=== PATIENT | male | born 1960 | race Caucasian/White ===

== ENCOUNTER 2019-04-10 16:58 | Outpatient (REF) | payer BC, SELFPAY ==
[2019-04-10 20:49] LABS: Anion Gap 9.7 mmol/L (3-11); BUN 26 mg/dL (7-18); CO2 28.3 mmol/L (21.0-32.0); Calcium 9.5 mg/dL (8.5-10.1); Chloride 100 mmol/L (98-107); Glucose 105 mg/dL (70-100); Potassium 3.8 mmol/L (3.5-5.1); Sodium 138 mmol/L (136-145)
== END 2019-04-10 17:18 ==
LOC: NCHCN 16:58
PROVIDERS: PCP Internal Medicine; Visit Provider Internal Medicine
DX: I10 Essential (primary) hypertension (principal); Z00.00 Encounter for general adult medical examination without abnormal findings; F17.220 Nicotine dependence, chewing tobacco, uncomplicated; E66.9 Obesity, unspecified
CPT/HCPCS: 80048

== ENCOUNTER 2020-07-01 16:43 | Outpatient (REF) | payer OTHER, SELFPAY ==
[2020-07-01 20:46] LABS: Anion Gap 9.4 mmol/L (3-11); BUN 18 mg/dL (7-18); CO2 29.6 mmol/L (21.0-32.0); CREATININE 1.03 mg/dL (0.70-1.30); Calcium 9.6 mg/dL (8.5-10.1); Chloride 100 mmol/L (98-107); Glucose 107 mg/dL (74-106); Potassium 3.7 mmol/L (3.5-5.1); Sodium 139 mmol/L (136-145)
== END 2020-07-01 17:03 ==
LOC: NCHCN 16:43
PROVIDERS: PCP Internal Medicine; Visit Provider Internal Medicine
DX: I10 Essential (primary) hypertension (principal)
CPT/HCPCS: 80048

== ENCOUNTER 2020-09-10 11:25 | Day surgery (SDC) | payer OTHER, SELFPAY ==
[2020-09-10 11:38] VITALS: BP 140/88; PULSE 79; RESP 16; TEMP 36.5; O2SAT 96
[2020-09-10] MEDS: Lactated Ringers 1,000 ML 80 ML IV (11:59)
--- NOTE | 2020-09-10 13:06 | BOWEL_PTH ---
PATIENT: Tej Adler LOC: [facility] U#:[id number] AGE/SX: 60/M ROOM: RE09/10/[address]: Quin Lopez MD : [id number] BED: DIS: 09/10/2020 SPEC #: [id number] RECD: 09/10/20 13:51 STATUS: JOHNATHON REQ #: [id number] [place]: 09/10/20 13:[address]: Quin Lopez DEPT: Surgical Specimen RECD BY: Julia Thomas ENTERED: 09/10/20 13:53 SP TYPE: Bowel OTHR DR: Anthony Paz Tissues: 1 - BIOPSY BOWEL 2 - BIOPSY BOWEL 3 - BIOPSY BOWEL 4 - BIOPSY BOWEL Procedures: GROSS AND MICRO LEVEL 4 Comments: [id number] ([id number] [facility] [place]#)
--- NOTE | 2020-09-10 13:25 | W.PM.DSUDISC ---
Discharge Plan Disposition Patient Disposition: HOME Condition: Good Discharge Details Reason For Visit: Colonoscopy Attending Provider: Quin Lopez Primary Care Provider: Anthony Paz Home Meds and New Rx's Prescriptions: Continued hydrochlorothiazide 25 mg tablet 25 mg PO DAILY RF: 0 Fiber Laxative (methylcellulo) 500 MG tablet 500 mg PO DAILY AM RF: 0 Centrum Silver 1 EACH tablet 1 ea PO DAILY RF: 0 Discharge Instructions Additional Instructions: Findings: Your colonoscopy did not show any visible inflammation. Random biopsies were performed throughout the colon. No polyps were found. Mild diverticulosis was present. Follow up: My office will contact you with biopsy results. Recommendations on the timing of your next colonoscopy will be based on the biopsies. Please call if you develop: fevers >101.5 Nausea or Vomiting Abdominal pain that is not transient DAY SURGERY UNIT POST COLONOSCOPY INSTRUCTIONS 1. Because there will be medication in your system for the next 24 hours, you may feel a little sleepy. Your coordination will be affected. Therefore: a. Do not drive or operate dangerous equipment for 24 hours. b. Do not drink alcohol beverages for 24 hours (not even beer). c. Plan to go home and rest for the day. 2. Generally there are no restrictions on your activity after a day or so has gone by, but you may feel a bit fatigued for a few days. 3 After you arrive home you may have a light meal and return to a normal diet as you can tolerate it without feeling sick to your stomach. 4. After surgery, you may feel pain or discomfort. This should be only transient, but if it persists please contact your doctor. 5. If there are any questions regarding the findings of your procedure, please feel free to contact your doctor. 6. If you are unable to contact your doctor with a problem, contact the hospital at [phone]. 7. Continue all your regular medications unless directed otherwise. I understand the above instructions and have no questions. Signature of Patient or Responsible Adult Escort Date/Time Name of Responsible Adult Escort Signature of Nurse Date/Time Activity:: Activity as Tolerated Diet:: As Tolerated Discharge Orders Discharge Orders: Discharge Order (Routine); Ordered 09/10/20 Ordered By: Quin Lopez DS: Diagnosis Discharge Diagnosis (1) Diverticulosis: Status: Acute
[2020-09-10 13:59] VITALS: BP 107/80; PULSE 66; RESP 16; TEMP 36.6; O2SAT 97
--- NOTE | 2020-09-12 19:27 | W.COLOREPORT ---
Colonoscopy Report Date of procedure: 09/10/20 Pre-op diagnosis general: Possible history of ulcerative colitis Post-op diagnosis procedure note: other (Diverticulosis) Procedure: Colonoscopy with random biopsies Surgeon: Quin Lopez Anesthesia proc note operative: MAC Indications: This 60 year old man presents for colonoscopy. His last procedure in 2012 showed inflammation from 40-45cm, biopsies showed IBD with no dysplasia. Rectal biopsies showed quiescent proctitis. He has no symptoms and has not taken Asacol for many years. Procedure Description: The patient was placed in the left [place] position. Propofol was titrated to sedation. Digital rectal examination revealed no abnormalities. The scope was advanced to the cecum without difficulty. The ileocecal valve and appendiceal orifice were clearly identified. The prep was good. The distal ileum was intubated and appeared normal. Random biopsies were performed in the ileum, ascending colon, sigmoid colon at 40cm and in the rectum. The scope was slowly withdrawn over the course of greater than 6 minutes with no abnormalities seen in the ascending, transverse, descending, sigmoid colon or rectum including on retroflexed view. He did have moderate sigmoid diverticulosis. The patient tolerated the procedure well and was stable to recovery. There is no evidence of active disease but will await biopsy results to determine follow up colonoscopy interval.
== END 2020-09-10 14:15 | disposition home or self-care (01) ==
PROVIDERS: PCP Internal Medicine; Visit Provider Surgery
PROC: 0DJD8ZZ Inspection of Lower Intestinal Tract, Via Natural or Artificial Opening Endoscopic (ICD-10-PCS; CPT 45378; principal; 2020-09-10 13:30)
DX: Z12.11 Encounter for screening for malignant neoplasm of colon (principal); I10 Essential (primary) hypertension; K51.90 Ulcerative colitis, unspecified, without complications; K57.30 Diverticulosis of large intestine without perforation or abscess without bleeding
CPT/HCPCS: 45380; 88305; J2001

== ENCOUNTER 2021-07-05 16:21 | Outpatient (REF) | payer OTHER, SELFPAY ==
[2021-07-05 21:21] LABS: Anion Gap 9.8 mmol/L (3-11); BUN 20 mg/dL (7-18); CO2 28.2 mmol/L (21.0-32.0); CREATININE 1.1 mg/dL (0.70-1.30); Calcium 9.5 mg/dL (8.5-10.1); Chloride 102 mmol/L (98-107); Glucose 91 mg/dL (74-106); Potassium 3.8 mmol/L (3.5-5.1); Sodium 140 mmol/L (136-145)
== END 2021-07-05 16:22 | disposition home or self-care (01) ==
LOC: NCHCN 16:21
PROVIDERS: PCP Internal Medicine; Visit Provider Internal Medicine
DX: I10 Essential (primary) hypertension (principal)
CPT/HCPCS: 80048

== ENCOUNTER 2023-01-29 08:58 | Outpatient (REF) | payer OTHER, SELFPAY ==
[2023-01-29 16:50] LABS: Anion Gap 6.1 mmol/L (3-11); BUN 30 mg/dL (7-18); CO2 30.9 mmol/L (21.0-32.0); CREATININE 1.1 mg/dL (0.70-1.30); Calcium 9.6 mg/dL (8.5-10.1); Calculated LDL 144 mg/dL (<100); Chloride 104 mmol/L (98-107); Cholesterol 211 mg/dL (<200); Estimated GFR 76.37 (mL/min/1.73m2); Glucose 100 mg/dL (74-106); HDL Cholesterol 53 mg/dL (40-60); Potassium 3.9 mmol/L (3.5-5.1); Sodium 141 mmol/L (136-145); Triglyceride 73 mg/dL (<150)
== END 2023-01-29 08:59 | disposition home or self-care (01) ==
LOC: NCHCN 08:58
PROVIDERS: PCP Internal Medicine; Visit Provider Family Medicine
DX: I10 Essential (primary) hypertension (principal); E78.5 Hyperlipidemia, unspecified
CPT/HCPCS: 80048; 80061

== ENCOUNTER 2023-10-17 16:41 | Outpatient (REF) | payer OTHER, SELFPAY ==
[2023-10-17 21:43] LABS: HCT 46.1 % (40.0-50.0); HGB 14.6 g/dL (13.5-17.5); MCH 26.4 pg (27.0-33.0); MCHC 31.7 % (32.0-36.0); MCV 83 fL (80-95); MPV 12.2 fL (8.0-11.0); Platelet Count 127 10^3/uL (130-400); RBC 5.54 10^6/uL (4.36-5.78); RDW 13.2 % (11.8-14.1); RDW-SD 39.7 fL; WBC 7.81 10^3/uL (4.4-10.8)
[2023-10-17 21:57] LABS: ALT 31 U/L (16-63); AST 25 U/L (15-37); Albumin 3.9 g/dL (3.4-5.0); Alkaline Phosphatase 55 U/L (46-116); Anion Gap 9.9 mmol/L (3-11); BUN 27 mg/dL (7-18); Bilirubin, Total 0.6 mg/dL (0.2-1.0); CO2 28.1 mmol/L (21.0-32.0); CREATININE 1.2 mg/dL (0.70-1.30); Calcium 9.8 mg/dL (8.5-10.1); Chloride 102 mmol/L (98-107); Glucose 108 mg/dL (74-106); Potassium 3.5 mmol/L (3.5-5.1); Sodium 140 mmol/L (136-145); Total Protein 7.7 g/dL (6.4-8.2)
== END 2023-10-17 16:42 | disposition home or self-care (01) ==
LOC: NCHCN 16:41
PROVIDERS: PCP Internal Medicine; Visit Provider Family Medicine
DX: Z00.00 Encounter for general adult medical examination without abnormal findings (principal); I10 Essential (primary) hypertension; E78.5 Hyperlipidemia, unspecified
CPT/HCPCS: 80053; 85027

== ENCOUNTER 2024-02-14 18:45 | Outpatient (REF) | payer OTHER, SELFPAY ==
[2024-02-14 20:51] LABS: HGB 14.2 g/dL (13.5-17.5); MCH 27.3 pg (27.0-33.0); MCHC 32.3 % (32.0-36.0); MCV 85 fL (80-95); RDW 13.4 % (11.8-14.1); RDW-SD 41.4 fL; WBC 7.98 10^3/uL (4.4-10.8)
[2024-02-14 21:03] LABS: ALT 33 U/L (16-63); AST 29 U/L (15-37); Alkaline Phosphatase 60 U/L (46-116); Anion Gap 8.3 mmol/L (3-11); BUN 27 mg/dL (7-18); Bilirubin, Total 0.7 mg/dL (0.2-1.0); CO2 30.7 mmol/L (21.0-32.0); CREATININE 1.1 mg/dL (0.70-1.30); Calcium 9.2 mg/dL (8.5-10.1); Chloride 103 mmol/L (98-107); Glucose 86 mg/dL (74-106); Potassium 4.4 mmol/L (3.5-5.1); Sodium 142 mmol/L (136-145); Total Protein 7.2 g/dL (6.4-8.2)
== END 2024-02-14 18:46 | disposition home or self-care (01) ==
LOC: NCHCN 18:45
PROVIDERS: PCP Internal Medicine; Visit Provider Family Medicine
DX: Z00.00 Encounter for general adult medical examination without abnormal findings (principal)
CPT/HCPCS: 80053; 85027

== ENCOUNTER 2024-04-14 17:22 | Emergency (ER) | payer OTHER, SELFPAY ==
[2024-04-14 17:26] VITALS: BP 184/87; PULSE 69; RESP 20; TEMP 37.2; O2SAT 98
--- NOTE | 2024-04-14 17:45 | DI.CT_ITS ---
Exam(s) CT CHEST/ABD/PEL W EXAM: CT CHEST/ABD/PEL W CLINICAL HISTORY: LUQ pain TECHNIQUE: Imaging Protocol: Axial computed tomography images with coronal and sagittal reformatted images were created and reviewed CONTRAST MATERIAL: Intravenous: Omnipaque 350 contrast volume:100 mL Oral: No COMPARISON: No exams were available for comparison FINDINGS: CHEST: Tracheobronchial tree: Patent where visualized. Pulmonary parenchyma: There are infiltrates seen in the lower lobes bilaterally and the dependent por tion of the left lingula. No architectural distortion. Visualized thyroid gland: There is a 9 mm hypodensity in the left lobe of the thyroid gland. No foll ow-up is recommended. Mediastinum and Melissa: No dominant adenopathy or fluid collection. The esophagus is unremarkable. Pleura: No effusion or pneumothorax. Heart: The heart is not dilated. Coronary artery calcification is present. No pericardial effusion. Pulmonary arteries: Due to the bolus timing, pulmonary artery opacification is suboptimal for evaluat ion of pulmonary emboli. No large central pulmonary embolus is present. Aorta: Thoracic aorta non-dilated. Atherosclerotic calcification is present. Lymph nodes: Within normal limits. Soft tissues: Unremarkable. Bones:There is L4-5 spondylolysis and grade 1 spondylolisthesis of L4 on L5. ABDOMEN: Liver: Normal density. No measurable mass. Portal, Superior Mesenteric, and Splenic Veins: Unremarkable. Gallbladder and Biliary Tract: No radiodense calculus or dilation. Pancreas: Normal density, no abnormal calcifications or inflammatory process. Spleen: Normal. Adrenals: No masses seen. Kidneys: Normal size, contour and axis. No radiodense stones or obstructive uropathy. There is a simp le cyst in the right kidney. No follow-up is recommended. Abdominal Aorta: Abdominal portion non-dilated. Mild atherosclerotic calcification is present. Bowel: There is diverticulosis of the colon. Mild pericolonic inflammatory changes are seen in the p roximal sigmoid colon suspicious for acute diverticulitis. The remainder of the bowel is unremarkabl e. There is no evidence of bowel obstruction. No evidence of appendicitis. Peritoneal Cavity: No ascites, collection or mesenteric inflammatory response. No free air. Lymph Nodes: Within normal limits. Bones: Within normal limits for the patient's age. Soft Tissues: There is a fat containing umbilical hernia. Small fat containing bilateral inguinal he rnias are present. PELVIS: Bladder: Symmetric distention, no gross wall thickening. Reproductive Organs: Unremarkable as visualized. Lymph Nodes: Within normal limits. Bones: Within normal limits. IMPRESSION: 1. Bilateral basilar infiltrates in the dependent portions of the lungs which may represent atelectas is or possible scarring. 2. Colonic diverticulosis with mild stranding around the proximal sigmoid colon suspicious for acute diverticulitis. No abscess or free air. Given the history, trauma should also be considered. 3. No acute fracture. No displaced rib fractures. RADIATION DOSE DELIVERED: 1,413.78mGy.cm Total DLP DATA REPOSITORY: All CT scans at this facility are submitted to the National Radiology Data Registry (NRDR) Dose Index Registry (DIR) with the [employer] (A[employer]). RADIATION OPTIMIZATION: All CT scans at this facility use at least one of these dose optimization te chniques: automated exposure control; mA and/or kV adjustment per patient size (includes targeted exa ms where dose is matched to clinical indication); or iterative reconstruction.
[2024-04-14 18:19] LABS: Abs Immature Grans 0.04 10^3/uL (0.0-0.06); Absolute Basophil Count 0.02 10^3/uL (0.0-0.2); Absolute Eosinophil Count 0.06 10^3/uL (0.0-0.7); Absolute Lymphocyte Count 1.38 10^3/uL (1.2-3.4); Absolute Monocyte Count 0.77 10^3/uL (0.1-0.8); Absolute Neutrophil Count 7.18 10^3/uL (1.2-6.7); Basophils % 0.2 %; Eosinophils % 0.6 %; HCT 47.3 % (40.0-50.0); Immature Grans % 0.4 %; Lymphocytes % 14.6 %; MCH 26.5 pg (27.0-33.0); MCHC 31.7 % (32.0-36.0); MCV 84 fL (80-95); MPV 10.6 fL (8.0-11.0); Monocytes % 8.1 %; Neutrophils % 76.1 %; Platelet Count 233 10^3/uL (130-400); RBC 5.66 10^6/uL (4.36-5.78); RDW 13.2 % (11.8-14.1); RDW-SD 40.8 fL; WBC 9.45 10^3/uL (4.4-10.8)
[2024-04-14 18:35] LABS: ALT 30 U/L (16-63); AST 17 U/L (15-37); Albumin 4.3 g/dL (3.4-5.0); Alkaline Phosphatase 60 U/L (46-116); Anion Gap 8.3 mmol/L (3-11); BUN 19 mg/dL (7-18); Bilirubin, Total 0.6 mg/dL (0.2-1.0); CO2 30.7 mmol/L (21.0-32.0); CREATININE 1.2 mg/dL (0.70-1.30); Calcium 9.3 mg/dL (8.5-10.1); Chloride 101 mmol/L (98-107); Estimated GFR 68.38 (mL/min/1.73m2); Glucose 110 mg/dL (74-106); Potassium 3.4 mmol/L (3.5-5.1); Sodium 140 mmol/L (136-145); Total Protein 8.3 g/dL (6.4-8.2)
[2024-04-14] MEDS: fentaNYL 100 MCG/2 ML VIAL 75 MCG IVP (18:36)
[2024-04-14] MEDS: Normal Saline - Diluent 50 ML VIAL IJ (18:45)
[2024-04-14] MEDS: Omnipaque 350 MG/ML 100 ML BTL IJ (18:46)
[2024-04-14] MEDS: Normal Saline Flush 10 ML SYR IVP (18:47)
--- NOTE | 2024-04-14 19:26 | DI.VRAD_ITS ---
PROCEDURE INFORMATION: Exam: CT Chest With Contrast; Diagnostic Exam date and time: 04/14/2024 6:50 PM Age: 64 years old Clinical indication: Injury; Blunt trauma; Injury date: 04/14/24; Fall off ladder, landing on ladder; Left abdominal and left chest pain TECHNIQUE: Imaging protocol: Diagnostic computed tomography of the chest with contrast. Radiation optimization: All CT scans at this facility use at least one of these dose optimization techniques: automated exposure control; mA and/or kV adjustment per patient size (includes targeted exams where dose is matched to clinical indication); or iterative reconstruction. Contrast material: OMNIPAQUE 350; Contrast volume: 100 ml; Contrast route: INTRAVENOUS (IV); COMPARISON: No relevant prior studies available. FINDINGS: Lungs: No alveolar or ground glass infiltrate. Left basilar linear parenchymal scarring or subsegmental collapse / atelectasis. No lung contusion. Pleural spaces: No pleural fluid collection. No pneumothorax. Heart: No pericardial effusion. Lymph nodes: No enlarged lymph nodes. Vasculature: Normal caliber thoracic aorta without dissection or aneurysm. Appendix: Normal appendix. Bones/joints: No acute fracture. Spinal degenerative changes. Soft tissues: Mild gynecomastia. Fat-containing inguinal and umbilical hernias. IMPRESSION: 1. No acute fracture. 2. No pleural fluid collection, pneumothorax, or lung contusion. PROCEDURE INFORMATION: Exam: CT Abdomen And Pelvis With Contrast Exam date and time: 04/14/2024 6:50 PM Age: 64 years old Clinical indication: Injury; Blunt trauma; Injury date: 04/14/24; Fall off ladder, landing on ladder; Left abdominal and left chest pain TECHNIQUE: Imaging protocol: Computed tomography of the abdomen and pelvis with contrast. Radiation optimization: All CT scans at this facility use at least one of these dose optimization techniques: automated exposure control; mA and/or kV adjustment per patient size (includes targeted exams where dose is matched to clinical indication); or iterative reconstruction. Contrast material: OMNIPAQUE 350; Contrast volume: 100 ml; Contrast route: INTRAVENOUS (IV); COMPARISON: No relevant prior studies available. FINDINGS: Liver: Normal. No mass. Gallbladder and bile ducts: Normal. No calcified stones. No ductal dilation. Pancreas: Normal. No ductal dilation. Spleen: Normal. No splenomegaly. Adrenal glands: Normal. No mass. Kidneys and ureters: No hydronephrosis. No calcified renal or ureteral stones. No perinephric stranding or perinephric fluid. 11 mm right renal cortical benign simple cyst for which no follow-up imaging is recommended. Stomach and bowel: Scattered colon diverticula with mild stranding external to the proximal sigmoid colon which may be secondary to recent trauma or mild acute diverticulitis. No perforation or abscess. Appendix: No evidence of appendicitis. Intraperitoneal space: No free air. No significant fluid collection. Vasculature: The abdominal aorta is normal in caliber without aneurysm or dissection. Lymph nodes: No enlarged lymph nodes. Urinary bladder: Unremarkable as visualized. Reproductive: Unremarkable as visualized. Bones/joints: No acute fracture. Spinal degenerative changes. L4-L5 spondylolisthesis with associated spondylolysis. Soft tissues: Unremarkable. IMPRESSION: 1. No acute fracture. 2. Scattered colon diverticula with mild stranding external to the proximal sigmoid colon which may be secondary to recent trauma or mild acute diverticulitis. No perforation or abscess. 3. Otherwise, no acute intra-abdominal or pelvic process. Dictated and Authenticated by: Chad Azevedo MD. Ordering:ALECIA Willis MD
[2024-04-14] MEDS: Cyclobenzaprine 10 MG TAB, 3 TABS/BTL PO (20:23)
[2024-04-14 20:37] VITALS: BP 140/78; PULSE 77; RESP 18; O2SAT 97
--- NOTE | 2024-04-14 21:47 | ED.GENADUL_ITS ---
Discharge Plan Disposition Patient Disposition: Home Condition: Stable Discharge Details Clinical Impression: Chest wall contusion Primary Care Provider: Anthony Paz ED Provider: Alba Urban Home Meds and New Rx's Prescriptions: New cyclobenzaprine 10 mg tablet 10 mg PO TID PRNQty: 10 0RF Continued hydrochlorothiazide 25 mg tablet 25 mg PO DAILY Fiber Laxative(methylcellulos) 500 MG tablet 500 mg PO DAILY AM Centrum Silver 1 EACH tablet 1 ea PO DAILY Discharge Instructions Instructions: Contusion in Adults (ED) Additional Instructions: Take the oxycodone sparingly, this medication is addictive, take the Flexeril as needed for musculoskeletal pain Do not drive for 8 hours after taking his medications Continue to take deep breaths at least 8 full inhalations and ask lesions daily You will likely have discomfort for 2 to 6 weeks Please return should you have worsening pain, shortness of breath, fever or chills, or should any new concerns arise Referrals: Anthony Paz MD [Primary Care Provider] - 2 days Discharge Data Discharge Date/Time-TO BE ENTERED AT DEPARTURE: 04/14/24 20:38 HPI General Date/Time Provider Initiated Documentation: 04/14/24 17:30 . HPI Narrative: This 64-year-old male presents after falling approximately 3 feet off a stepladder. He states he lost his balance fell onto his left side. The stepladder fell and patient fell on top of the stepladder. He reports that he has tenderness to left ribs and left upper quadrant. Denies any head injury or loss of consciousness. Denies any neck pain. States the pain is worsened with breathing and movement. Related Data Home Medications Medication Instructions Recorded Confirmed methylcellulose (laxative) 500 mg 500 mg PO DAILY AM 01/07/13 04/14/24 tablet (Fiber Laxative (methylcellulose)) [id number] acid 0.4 1 ea PO DAILY 01/07/13 04/14/24 mg-lycopene 300 mcg-lutein 250 mcg tablet (Centrum Silver) hydrochlorothiazide 25 mg tablet 25 mg PO DAILY 12/19/19 04/14/24 cyclobenzaprine 10 mg tablet 10 mg PO TID PRN #10 tabs 04/14/24 Previous Rx's Medication Instructions Recorded cyclobenzaprine 10 mg tablet 10 mg PO TID PRN #10 tabs 04/14/24 Allergies Allergy/AdvReac Type Severity Reaction Status Date / Time No Known Allergies Allergy Unverified 04/14/24 17:29 General Stated Complaint: Fall/Non TraumaCriteria CHERRY: 3 Exam Narrative Exam Narrative: Calm and cooperative 64-year-old male with reproducible tenderness in the left upper quadrant, no CVA tenderness, GCS 15, alert and oriented x 4, no visible signs of head injury, no cervical spine tenderness, no paraspinal tenderness, pupils equal round reactive to light and accommodation, lungs clear to auscultation bilaterally, cardiac rate rhythm regular, no visible sign of trauma to chest or abdomen. No visible sign of skin injury, no lower extremity tenderness. Course Vital Signs Vital signs: Vital Signs Temperature 37.2 C 04/14/24 17:26 Pulse 69 04/14/24 17:26 Respiratory Rate 20 04/14/24 17:26 Blood Pressure 184/87 H 04/14/24 17:26 Pulse Oximetry 98 04/14/24 17:26 Temperature 37.2 C 04/14/24 17:26 Pulse 77 04/14/24 20:37 Respiratory Rate 18 04/14/24 20:37 Respiratory Effort Normal 04/14/24 17:29 Blood Pressure 140/78 04/14/24 20:37 Blood Pressure Position Sitting 04/14/24 17:26 Pulse Oximetry 97 04/14/24 20:37 Pain Level 4 04/14/24 20:37 Lab/Test Results Lab/Test Results: Laboratory Tests Range/Units 04/14/24 18:08 WBC (4.4-10.8) 10^3/uL 9.45 RBC (4.36-5.78) 10^6/uL 5.66 Hgb (13.5-17.5) g/dL 15.0 Hct (40.0-50.0) % 47.3 MCV (80-95) fL 84 MCH (27.0-33.0) pg 26.5 L MCHC (32.0-36.0) % 31.7 L RDW (11.8-14.1) % 13.2 Plt Count (130-400) 10^3/uL 233 MPV (8.0-11.0) fL 10.6 Immature Gran % % 0.4 Neutrophils % % 76.1 Lymphocytes % % 14.6 Monocytes % % 8.1 Eosinophils % % 0.6 Basophils % % 0.2 Nucleated RBC % (0.0-0.3) % 0.0 Absolute Neutrophils (1.2-6.7) 10^3/uL 7.18 H Absolute Lymphocytes (1.2-3.4) 10^3/uL 1.38 Absolute Monocytes (0.1-0.8) 10^3/uL 0.77 Absolute Eosinophils (0.0-0.7) 10^3/uL 0.06 Absolute Basophils (0.0-0.2) 10^3/uL 0.02 Sodium (136-145) mmol/L 140 Potassium (3.5-5.1) mmol/L 3.4 L Chloride (98-107) mmol/L 101 Carbon Dioxide (21.0-32.0) mmol/L 30.7 Anion Gap (3-11) mmol/L 8.3 BUN (7-18) mg/dL 19 H Creatinine (0.70-1.30) mg/dL 1.2 Est GFR (CKD-EPI 2020) (mL/min/1.73m2) 68.38 Glucose (74-106) mg/dL 110 H Calcium (8.5-10.1) mg/dL 9.3 Total Bilirubin (0.2-1.0) mg/dL 0.6 AST (15-37) U/L 17 ALT (16-63) U/L 30 Alkaline Phosphatase (46-116) U/L 60 Total Protein (6.4-8.2) g/dL 8.3 H Albumin (3.4-5.0) g/dL 4.3 ABO/Rh O Positive Antibody Screen NEGATIVE Medical Decision Making Patient alert and oriented, ambulatory steady gait, CT is ordered secondary to trauma, per radiology interpretation my review no evidence of acute abnormality, question of some stranding in the sigmoid colon, this was reviewed with Dr. Rockwell who does not feel like additional observation is warranted at this time, after consultation. Patient is nontender in this area of his abdomen. He is feeling improvement after some fentanyl administration will be discharged home with muscle relaxant and oxycodone as needed. He he is encouraged to treat his injury like a rib fracture and spirometry reviewed and encouraged. Diagnostic labs do not show evidence of significant acute abnormality. Patient is discharged home in stable condition with stable vitals ambulatory with steady gait fully alert and oriented Quality:SDOH Health Related Social Needs: No Data to Display PFSH All Active Problems (Updated 04/14/24 @ 20:11 by HANSEL Manley) Chest wall contusion (Acute) Normal colonoscopy (Acute) Diverticulosis (Acute) Medical History (Updated 04/14/24 @ 20:11 by HANSEL Manley) Hyperlipidemia Snoring Sleep apnea Chewing tobacco use Obesity Hypertension Ulcerative colitis Surgical History (Updated 09/10/20 @ 11:33 by Lalit Rainey) Hx of tonsillectomy History of colonoscopy (~2012) Social History Smoking/Tobacco Use Status: Current every day Tobacco Type: smokeless tobacco Smoking risk assessment performed?: Yes Alcohol Intake: current Alcohol Intake frequency: a few times a month Drug use: Never Substance use type: does not use Do you feel safe at home: Yes Do you feel safe in your relationship?: Yes
== END 2024-04-14 20:38 | disposition home or self-care (01) ==
PROVIDERS: Emergency Provider Physician Assistant; PCP Internal Medicine
DX: S20.212A Contusion of left front wall of thorax, initial encounter (principal); I10 Essential (primary) hypertension; E78.5 Hyperlipidemia, unspecified; F17.220 Nicotine dependence, chewing tobacco, uncomplicated; W11.XXXA Fall on and from ladder, initial encounter; Y93.89 Activity, other specified; Y92.017 Garden or yard in single-family (private) house as the place of occurrence of the external cause
CPT/HCPCS: 74177; 80053; 86850; 86900; 86901; 99285; 71260; 85025; 99284; J3010; J3490

== ENCOUNTER 2024-10-21 21:26 | Outpatient (REF) | payer BC, SELFPAY ==
[2024-10-21 21:52] LABS: Anion Gap 7.7 mmol/L (3-11); BUN 27 mg/dL (7-18); CO2 30.3 mmol/L (21.0-32.0); CREATININE 1.2 mg/dL (0.70-1.30); Calcium 9.6 mg/dL (8.5-10.1); Chloride 103 mmol/L (98-107); Estimated GFR 68.38 (mL/min/1.73m2); Glucose 85 mg/dL (74-106); LDL CHOLESTEROL 149 mg/dL (<100); Potassium 3.9 mmol/L (3.5-5.1); Sodium 141 mmol/L (136-145)
== END 2024-10-21 21:27 | disposition home or self-care (01) ==
LOC: NCHCN 21:26
PROVIDERS: PCP Internal Medicine; Visit Provider Family Medicine
DX: I10 Essential (primary) hypertension (principal); E78.5 Hyperlipidemia, unspecified
CPT/HCPCS: 80048; 83721